=== PATIENT | female | born 1940 | race Caucasian/White ===

== ENCOUNTER 2018-05-22 10:09 | Emergency (ER) | payer MEDICARE, BC ==
[~2018-05-22] VITALS: Ht 157.5 cm; Wt 70.0 kg
[2018-05-22] MEDS ORDERED: ACYCLOVIR400 MG PO (10:27)
[2018-05-22] MEDS ORDERED: METOPROL TAR25 MG PO (10:28)
[2018-05-22] MEDS ORDERED: AMLODIPINE5 MG PO (10:28)
[2018-05-22] MEDS ORDERED: LOSARTAN POT50 MG PO (10:29)
[2018-05-22] MEDS ORDERED: ALLOPURINOL100 MG PO (10:29)
[2018-05-22] MEDS ORDERED: LOVASTATIN20 M1 PO (10:29)
[2018-05-22] MEDS ORDERED: DULOXETINE HCL60 MG (10:30)
[2018-05-22] MEDS ORDERED: TEMAZEPAM15 MG PO (10:30)
[2018-05-22] MEDS ORDERED: NEURONTIN100 MG PO (10:31)
[2018-05-22] MEDS ORDERED: LYSINE500 MG PO (10:31)
[2018-05-22 10:57] LABS: URINE BILIRUBIN - DIPSTICK NEGATIVE (NEGATIVE); URINE BLOOD DIPSTICK LARGE (NEGATIVE); URINE COLOR YELLOW; URINE GLUCOSE - DIPSTICK NEGATIVE (NEGATIVE); URINE KETONE NEGATIVE (NEGATIVE); URINE LEUK ESTERASE LARGE (Negative); URINE NITRITE - DIPSTICK NEGATIVE (Negative); URINE PROTEIN - DIPSTICK 100 mg/dL (NEG-TRACE); URINE SPECIFIC GRAVITY 1.025; URINE UROBILINOGEN - DIPSTICK 0.2 E.U./dL (0.2)
[2018-05-22 10:59] LABS: URINE CLARITY TURBID; URINE RBC TNTC RBC/hpf (0-5); URINE WBC TNTC WBC/hpf (0-5)
[2018-05-22 11:00] LABS: URINE BACTERIA FEW hpf; URINE EPITHELIAL CELLS MODERATE EPI/hpf (0-FEW)
[2018-05-22] MEDS ORDERED: CEPHALEXIN500 MG PO (11:15)
[2018-05-22] MEDS ORDERED: CIPROFLOXACN500 MG PO (11:15)
[2018-05-22 11:40] VITALS: BP 174/89
== END 2018-05-22 11:45 | disposition home or self-care (01) ==
LOC: ED 10:09
PROVIDERS: Emergency Medicine
DX: N39.0 Urinary tract infection, site not specified (principal); I10 Essential (primary) hypertension; G62.9 Polyneuropathy, unspecified; M10.9 Gout, unspecified; B96.20 Unspecified Escherichia coli [E. coli] as the cause of diseases classified elsewhere

== ENCOUNTER 2018-10-06 11:48 | Emergency (ER) | payer MEDICARE, BC ==
[~2018-10-06] VITALS: Ht 157.5 cm; Wt 70.5 kg
[~2018-10-06 11:48] MED LIST: ACYCLOVIR400 MG PO; ALLOPURINOL100 MG PO; AMLODIPINE5 MG PO; CEPHALEXIN500 MG PO; CIPROFLOXACN500 MG PO; DULOXETINE HCL60 MG; LOSARTAN POT50 MG PO; LOVASTATIN20 M1 PO; LYSINE500 MG PO; METOPROL TAR25 MG PO; NEURONTIN100 MG PO; TEMAZEPAM15 MG PO
[2018-10-06 12:23] LABS: URINE BLOOD DIPSTICK LARGE (NEGATIVE); URINE COLOR BROWN; URINE GLUCOSE - DIPSTICK NEGATIVE (NEGATIVE); URINE KETONE TRACE mg/dL (NEGATIVE); URINE PH 6.5 (4.5-8.0); URINE PROTEIN - DIPSTICK >=300 mg/dL (NEG-TRACE); URINE SPECIFIC GRAVITY >=1.030
[2018-10-06 12:26] LABS: URINE BILIRUBIN - DIPSTICK NEGATIVE (NEGATIVE); URINE CLARITY TURBID; URINE LEUK ESTERASE MODERATE (NEGATIVE); URINE NITRITE - DIPSTICK POSITIVE (Negative)
[2018-10-06 12:27] LABS: URINE RBC >100 RBC/hpf (0-5); URINE WBC >100 WBC/hpf (0-5)
[2018-10-06] MEDS ORDERED: BACTRIM DS1 TAB PO (12:54)
[2018-10-06 12:56] VITALS: BP 130/61
== END 2018-10-06 13:01 | disposition home or self-care (01) ==
LOC: ED 11:48
PROVIDERS: Family Medicine
DX: N30.01 Acute cystitis with hematuria (principal); I10 Essential (primary) hypertension; G62.9 Polyneuropathy, unspecified; M10.9 Gout, unspecified; Z87.440 Personal history of urinary (tract) infections